=== PATIENT | female | born 1980 | race Two or more races ===

== ENCOUNTER 2017-07-24 09:32 | Emergency (ER) | payer SELFPAY ==
[2017-07-24 09:39] VITALS: BP 98/54; PULSE 64; TEMP 97.7; BMI 28.3
[2017-07-24] MEDS ORDERED: NAPROXEN 500 MG TABLET (FP) PO ONE (11:09)
--- NOTE | 2017-07-24 11:12 | PDOC ---
History of Present Illness - General Chief Complaint: Injury Stated Complaint: BACK PAIN Time Seen by Provider: 07/24/17 10:45 History Source: Patient Exam Limitations: No Limitations - History of Present Illness Initial Comments: 07/24/17 19:24 Complaint: My chief, complaints right posterior rib pain and lower back pain and right lower leg pain since falling yesterday. History of present illness: Patient is a 37-year-old female with no significant medical history here today complaining of right posterior lower rib pain and right lower back pain and right anterior lower leg pain since falling yesterday. Patient denies any head injury. Patient denies any difficulty walking or any shortness of breath. Patient denies any radiation of pain down right buttocks to LEG. She denies any weakness or numbness of legs or any saddle anesthesia or any incontinency. Occurred: reports: yesterday Severity: reports: moderate (RT. BACK) Pain Location: reports: back (RT. LOWER, POSTERIOR LOWER RT. RIBS, RT. LOWER ANTERIOR LEG ) Modifying Factors: improves with: None Loss of Consciousness: no loss of consciousness Associated Symptoms (Fall): denies symptoms Past History - Past Medical History Allergies/Adverse Reactions: Allergies Allergy/AdvReac Type Severity Reaction Status Date / Time No Known Allergies Allergy Verified 07/24/17 09:35 Home Medications: Ambulatory Orders Naproxen [Naprosyn -] 500 mg PO BID PRN #14 tablet MDD 2 07/24/17 COPD: No - Immunization History Immunization Up to Date: Yes - Suicide/Smoking/Psychosocial Hx Smoking History: Never smoked Have you smoked in the past 12 months: No Information on smoking cessation initiated: No Hx Alcohol Use: No Drug/Substance Use Hx: No Substance Use Type: None Review of Systems - Review of Systems Able to Perform ROS?: Yes Constitutional: No: Symptoms Reported HEENTM: No: Symptoms Reported Respiratory: No: Symptoms reported Cardiac (ROS): No: Symptoms Reported ABD/GI: No: Symptoms Reported : No: Symptoms Reported Musculoskeletal: Yes: Back Pain (RT. LOWER RIB PAIN), Joint Pain (RT. POSTERIOR LOWER RIB, RT. ANTERIOR LEG LOWER ). No: Joint Swelling, Neck Pain Integumentary: No: Symptoms Reported Neurological: No: Symptoms reported *Physical Exam - Vital Signs Last Vital Signs Temp Pulse Resp BP Pulse Ox 97.7 F 64 15 98/54 96 07/24/17 09:35 07/24/17 09:35 07/24/17 09:35 07/24/17 09:35 07/24/17 09:35 - Physical Exam General Appearance: Yes: Appropriately Dressed Neck: negative: Tender, Lymphadenopathy (R), Lymphadenopathy (L), Rigidity, Tender lateral, Tender midline Respiratory/Chest: positive: Lungs Clear, Normal Breath Sounds. negative: Chest Tender, Respiratory Distress Cardiovascular: positive: Regular Rhythm, Regular Rate, S1, S2 Musculoskeletal: positive: Normal Inspection, Other (RT. POSTERIOR RIB TENDERNESS LOWER, RT. PARASPINAL MUSCLE TENDERNESS). negative: CVA Tenderness, CVA Tenderness (R), CVA Tenderness (L), Decreased Range of Motion, Vertebral Tenderness Extremity: positive: Normal Capillary Refill, Normal Inspection, Normal Range of Motion (B/L LEGS ), Tender (RT. ANTERIOR LOWER LEG ) Integumentary: positive: Normal Color Neurologic: positive: Alert, Normal Response, Motor Strength 5/5 (UPPER AND LOWER B/L B), Respond to painful stimul, Responsive. negative: Numbness, Sensory Deficit (B/L LEGS ) Deep Tendon Reflexes: Knee (R): 4+ Procedures - Consent Consent obtained: From Patient ED Treatment Course - RADIOLOGY Radiology Studies Ordered: Category Date Time Status RIBS RIGHT SIDE [RAD] Stat Radiology 07/24/17 11:10 Ordered SPINE-LUMBAR SACRAL [RAD] Stat Radiology 07/24/17 11:10 Ordered Medical Decision Making - Medical Decision Making 07/24/17 19:26 Patient is a 37-year-old female with no significant medical history here today complaining of right posterior lower rib pain and right lower back pain and right anterior lower leg pain since falling yesterday. Patient denies any head injury. Patient denies any difficulty walking or any shortness of breath. Patient denies any radiation of pain down right buttocks to LEG. She denies any weakness or numbness of legs or any saddle anesthesia or any incontinency. Fall contusion rt. lower leg rt. lower back strain rt. posterior rib pain r/o fracture PLAN: xray rt. ribs negative for fracture per Dr. Deras xray lumbar/sacral spine negative for fracture per Dr. Deras naprosyn 500 mg po now than q 12 hr prn pain follow up with ortho 07/24/17 19:27 *DC/Admit/Observation/Transfer Diagnosis at time of Disposition: Fall Qualifiers: Encounter type: initial encounter Qualified Code(s): W19.XXXA - Unspecified fall, initial encounter Contusion of rib on right side Qualifiers: Encounter type: initial encounter Qualified Code(s): S20.211A - Contusion of right front wall of thorax, initial encounter Low back pain Qualifiers: Chronicity: acute Back pain laterality: right Sciatica presence: without sciatica Qualified Code(s): M54.5 - Low back pain Contusion of lower leg, right Qualifiers: Encounter type: initial encounter Qualified Code(s): S80.11XA - Contusion of right lower leg, initial encounter - Discharge Dispostion Disposition: HOME Condition at time of disposition: Stable - Prescriptions Prescriptions: Naproxen [Naprosyn -] 500 mg PO BID PRN #14 tablet MDD 2 PRN Reason: Pain - Referrals Referrals: Dayday Mccoy MD [Staff Physician] - - Patient Instructions Additional Instructions: You may follow-up with orthopedist for further evaluation if symptoms continue or worsen avoid any strenuous activities or exercise Return to emergency room if any numbness of legs or private area or any loss of control of urination or bowel movement Patient voiced understanding of discharge instructions and all questions were answered thank you for choosing [facility] emergency room for your medical needs today - Post Discharge Activity
[2017-07-24] MEDS ORDERED: NAPROXEN 500 MG TABLET (FP) ONE (11:13)
== END 2017-07-24 12:43 | disposition home or self-care (01) ==
LOC: JERFT 09:32
DX: S20.211A Contusion of right front wall of thorax, initial encounter (principal); S80.11XA Contusion of right lower leg, initial encounter; M54.5 Low back pain; W10.8XXA Fall (on) (from) other stairs and steps, initial encounter; Y93.89 Activity, other specified; Y92.89 Other specified places as the place of occurrence of the external cause; Y99.8 Other external cause status
CPT/HCPCS: 71101-TC-RT; 72100-TC; 99281-25